=== PATIENT | female | born 1965 | race African-American/Black ===

== ENCOUNTER 2016-05-25 05:08 | Emergency (ER) | payer MEDICARE ==
[~2016-05-25 05:08] MED LIST: ACYCLOVIR PO; ACYCLOVIR400 MG PO; ALBUTEROL17 GM INH; AZITHROMYCIN1 GM PO; BACTRIM 400-801 TA1 PO; BACTRIM DS TABL1 TA1 PO; BENICAR HCT 20-1 TA1 PO; CIPRO PO; DOXYCYCLINE PO; E-MYCIN250 MG PO; EFFER-K 20 MEQ20 MEQ PO; EFFEXOR XR75 MG PO; FIORICET 50-321 EACH PO; FLEXERIL PO; FLEXERIL10 MG PO; FLONASE 0.05% N16 G1; HCTZ PO; HYCODAN60 ML 5MG/ PO; K-DUR20 ME1 DOB; KETOPROFEN PO; LISINOPRIL; LISINOPRIL-HCTZ1 T15 PO; LISINOPRIL-HCTZ1 T16 PO; LOPRESSOR PO; LORATADINE PO; LORTAB 10-5001 EACH PO; LOTENSIN HCT 201 TA1 PO; MEDROL PO; METOPROLOL-HCTZ1 TAB PO; MOBIC PO; MOTRIN600 MG PO; MULTI VITAMIN1 EACH; NASONEX17 GM; NEURONTIN800 MG PO; NORVASC; NORVASC PO; NORVASC10 MG PO; ORUDIS75 M1 PO; POTASSIUM99 M1; PREDNISONE PO; PREDNISONE10 MG/DOSE PO; PRILOSEC; PYRIDIUM PO; SOMA PO; TRAMADOL HCL50 M1 PO; ULTRAM PO; VOLTAREN75 MG PO; WELCHOL625 MG PO; XANAX1 MG PO; ZANTAC PO; ZESTORETIC 20-1 EACH PO; ZESTORETIC 20/11 TAB PO; ZESTORETIC 20/21 TAB PO; ZITHROMAX PO; ZOVIRAX200 MG
[2016-05-25 05:37] LABS: HEMATOCRIT 44.2 % (35.0-45.0); HEMOGLOBIN 14.4 gm/dL (12.0-16.0); LYMPHOCYTE# 1.2 X10e3 (1.0-3.5); LYMPHOCYTE% 7.4 % (17.0-45.0); MEAN CELL VOLUME 88.4 FL (83-96); MEAN CORPUSCULAR HEMOGLOBIN 28.8 PG (28-34); MEAN CORPUSCULAR HGB CONC 32.5 g/dL (30-36); MEAN PLATELET VOLUME 7.5 FL (6.5-11.5); MONOCYTE# 0.7 X10e3 (0-1.0); MONOCYTE% 4.7 % (3.0-12.0); NEUTROPHIL# 13.9 X10e3 (1.5-7.1); NEUTROPHIL% 87.9 % (40-75); PLATELET COUNT 146 X10e3 (140-420); RED CELL DISTRIBUTION WIDTH 13.8 % (11.0-15.5); WHITE BLOOD COUNT 15.8 X10e3 (4.0-10.5)
[2016-05-25 05:39] LABS: DIFF IND NO
[2016-05-25 05:44] LABS: INR 1.2; PROTHROMBIN TIME (PATIENT) 13.7 SECONDS (9.5-12.4)
[2016-05-25 05:52] LABS: PARTIAL THROMBOPLASTIN TIME 25.8 SECONDS (25.6-38.1)
[2016-05-25 05:53] LABS: BUN/CREATININE RATIO 13.5; CALCIUM SERUM 8.3 mg/dL (8.4-10.2); GLOM FILT RATE Estimated 34.1 mL/min (>60); POTASSIUM 3.8 mmol/L (3.5-5.1)
== END 2016-05-25 06:49 | disposition left against medical advice (07) ==
LOC: SED 05:08
PROVIDERS: Emergency Medicine
DX: N17.9 Acute kidney failure, unspecified (principal); M79.605 Pain in left leg; R79.89 Other specified abnormal findings of blood chemistry; I10 Essential (primary) hypertension; F41.9 Anxiety disorder, unspecified; F17.200 Nicotine dependence, unspecified, uncomplicated
CPT/HCPCS: 36415; 80048; 85025; 85379; 85610; 85730; 96374; 96375; 99284; J1170; J2930; J3360